=== PATIENT | male | born 1990 | race Caucasian/White ===

== ENCOUNTER 2016-04-04 22:05 | Emergency (ER) | payer OTHER ==
[~2016-04-04] VITALS: Ht 182.9 cm; Wt 96.0 kg
[2016-04-04 22:06] VITALS: BP 160/98; PULSE 112; RESP 16; TEMP 98; O2SAT 100
--- NOTE | 2016-04-04 22:43 | PD ---
HPI Chief Complaint: Bite or Sting Time Seen by Provider: 22:43 Travel History International Travel<30 days: No Contact w/Intl Traveler<30days: No Traveled to known affect area: No History of Present Illness HPI 26-year-old male with no significant medical history presents to department for evaluation of a raccoon bite sustained to his right foot. Patient states a raccoon and his dog were fighting when he uses foot to break them up. He sustained a bite on the right foot doing this. Patient states he is up-to-date on his tetanus vaccination. Has never received previous vaccination or immunoglobulin. Reports no pain in the site. Ports alterations in sensation. He has no other symptoms to report. FOR[facility]LY [facility] Past Medical History Medical History: Denies Significant Hx Social History Alcohol Use: No Tobacco Use: No Substance Use: No Allergies-Medications (Allergen,Severity, Reaction): Coded Allergies: No Known Allergies (Unverified , 04/04/16) Reported Meds & Prescriptions Reported Meds & Active Scripts Active Augmentin (Amoxicillin-Clavulanate) 875-125 mg Tab 875 Mg PO BID 10 Days not for use in CrCl <30 ml/min. Review of Systems Except as stated in HPI: all other systems reviewed are Neg Physical Exam Narrative GENERAL: Well-nourished, well-developed male patient in no acute distress SKIN: Warm and dry. 2 superficial abrasions on the dorsal aspect of the right foot consistent with superficial bite robbins. Small amount of bleeding. HEAD: Normocephalic. EYES: No scleral icterus. No injection or drainage. NECK: Supple, trachea midline. No JVD or lymphadenopathy. CARDIOVASCULAR: Regular rate and rhythm without murmurs, gallops, or rubs. RESPIRATORY: Breath sounds equal bilaterally. No accessory muscle use. GASTROINTESTINAL: Abdomen soft, non-tender, nondistended. MUSCULOSKELETAL: No cyanosis, or edema. BACK: Nontender without obvious deformity. No CVA tenderness. Data Data Last Documented VS Vital Signs Date Time Temp Pulse Resp B/P Pulse Ox O2 Delivery O2 Flow Rate FiO2 04/04/16 22:06 98.0 112 16 160/98 100 Room Air Orders Rabies Immune Globulin Inj (Hyperrab S/D (04/04/16 22:45) Rabies Vaccine Human Cell Inj (Imovax In (04/04/16 22:45) MDM Medical Decision Making Medical Screen Exam Complete: Yes Emergency Medical Condition: Yes Medical Record Reviewed: Yes Differential Diagnosis Animal bite versus abrasion versus puncture wound Narrative Course 26-year-old male presents to emergency department for evaluation following a bite from a raccoon to his right foot. Patient appears healthy. He is up-to- date on his tetanus. He is provided rabies vaccine and immunoglobulin. The bite wound is cleansed and dressed. He is counseled on care and instructed when to get his next rabies vaccine. He agrees to return immediately if any acute worsening of symptoms. Diagnosis Primary Impression: Bitten by raccoon, initial encounter Additional Impression: Animal bite of foot Qualified Code: S91.351A - Animal bite of foot, right, initial encounter Referrals: Primary Care Physician [facility] Dept. Patient Instructions: Animal Bite (ED), General Instructions, Rabies Immune Globulin (By injection), Rabies Vaccine (ED) Departure Forms: Tests/Procedures, Work Release Enter return to work date: Apr 05, 2016 Additional Instructions: Keep the area clean and dry Elevate to reduce pain and swelling Follow-up to primary care provider Return immediately to the emergency department with any acute worsening of symptoms Rabies vaccinations are to be given in 3 days, 7 days, and 14 days from today. This can be done in the [facility] department. Med/Other Pt SpecificInfo: Prescription(s) given Scripts Amoxicillin-Clavulanate (Augmentin)875-125 mg [id number] Mg PO BID 10 Days Ref 0 not for use in CrCl <30 ml/min. Prov:Bridgette Leal 04/04/16 Disposition: 01 DISCHARGE HOME Condition: Stable Bridgette Leal Apr 04, 2016 22:43
[2016-04-04] MEDS ORDERED: RABIES VACCINE HUMAN DIPL CELL 2.5 UNITS/ML SYRINGE IM ONE (22:45)
[2016-04-04] MEDS ORDERED: RABIES IMMUNE GLOBULIN INJ 1,500 UNITS/10 ML VIAL IM ONE (22:45)
[2016-04-04] MEDS ORDERED: AUGM875T PO (23:53)
== END 2016-04-05 00:34 | disposition home or self-care (01) ==
LOC: NEPB 22:05
DX: S91.351A Open bite, right foot, initial encounter (principal); W55.51XA Bitten by raccoon, initial encounter; Z23 Encounter for immunization
CPT/HCPCS: 90375; 90471; 90675; 96372